=== PATIENT | female | born 1965 | race Caucasian/White ===

== ENCOUNTER → 2016-09-26 | Outpatient (CLI) | payer BC ==
[~2016-09-26] MED LIST: ACET-1256 PO; ATR10 PO; BENA10TA10 PO; CALC0.2510 PO; CETI10TA84 PO; FEXO1TAB49 PO; KPH PO; LEVA45AE INH; LEVAAER2 INH; LOVA20TA4 PO; PANT40TA PO; TPRSR/50 PO
[2016-09-26 14:43] LABS: BASO % 0.8 %; BASO ABS # 0.07 K/uL (0-0.2); COMPLETE YES; EOS % 2.9 %; HEMATOCRIT 38.4 % (37-47); IG% 0.7 %; LYMPH % 35.3 %; LYMPH ABS # 3.09 K/uL (1.2-3.4); MEAN CELL VOLUME 90.6 fL (80-100); MEAN CORPUSCULAR HEMOGLOBIN 30.9 pg (25-34); MEAN CORPUSCULAR HGB CONC 34.1 g/dl (32-36); MEAN PLATELET VOLUME 10.1 fL (7.4-10.4); NEUT % 53.3 %; PLATELET COUNT 341 K/uL (130-400); RED BLOOD COUNT 4.24 M/uL (4.2-5.4); WHITE BLOOD COUNT 8.76 K/uL (4.8-10.8)
[2016-09-26 15:34] LABS: ALKALINE PHOSPHATASE 93 U/L (45-117); ALT/SGPT 20 U/L (12-78); AST/SGOT 12 U/L (15-37); BLOOD UREA NITROGEN 19 mg/dl (7-18); BUN/CREATININE RATIO 11.6 (10-20); CALCIUM 9.4 mg/dl (8.5-10.1); CARBON DIOXIDE 30 mmol/L (21-32); CHLORIDE 106 mmol/L (98-107); GLUCOSE 138 mg/dl (70-99); PHOSPHORUS 2.1 mg/dl (2.5-4.9); POTASSIUM 3.5 mmol/L (3.5-5.1); SODIUM 143 mmol/L (136-145)
[2016-09-26 15:37] LABS: FERRITIN 79.8 ng/ml (8.0-388.0); TOTAL IRON BINDING CAPACITY 371 mcg/dl (250-450)
[2016-09-26 15:48] LABS: URINE APPEARANCE CLEAR (CLEAR); URINE BILIRUBIN NEG (NEG); URINE COLOR YELLOW; URINE EPITHELIAL CELL AUTO 20-30 /lpf (0-5); URINE NITRITE NEG (NEG); UROBILINOGEN NEG (NEG); ZZUR CULT IF INDIC CLEAN CATCH NO
[2016-09-26 15:50] LABS: MANUAL MICROSCOPIC REQUIRED? NO; REVIEW REQ? NO
[2016-09-26 16:06] LABS: URINE TOTAL PROTEIN < 5.0 mg/dl (0-11.9)
== END | disposition home or self-care (01) ==
LOC: C.LAB 13:52
PROVIDERS: ATTEND Internal Medicine Endocrinology, Diabetes & Metabolism
DX: C50.112 Malignant neoplasm of central portion of left female breast (principal); Z13.29 Encounter for screening for other suspected endocrine disorder; M81.0 Age-related osteoporosis without current pathological fracture; E87.8 Other disorders of electrolyte and fluid balance, not elsewhere classified; Z13.21 Encounter for screening for nutritional disorder; N18.1 Chronic kidney disease, stage 1; N20.0 Calculus of kidney; E83.31 Familial hypophosphatemia; E83.50 Unspecified disorder of calcium metabolism

== ENCOUNTER 2016-10-11 16:13 | Emergency (ER) | payer BC ==
[~2016-10-11] VITALS: Ht 152.4 cm; Wt 82.7 kg
[~2016-10-11 16:13] MED LIST changes: -ATR10 PO; -CETI10TA84 PO; -FEXO1TAB49 PO; -LEVA45AE INH; -TPRSR/50 PO
[2016-10-11 16:37] VITALS: TEMP 36.7; Ht 152.4 cm; Wt 82.7 kg
[2016-10-11] MEDS ORDERED: TPRSR/50 PO (17:49)
[2016-10-11] MEDS ORDERED: LEVA45AE INH (17:49)
[2016-10-11 18:12] LABS: HEMATOCRIT 38.2 % (37-47); MEAN CELL VOLUME 89.7 fL (80-100); MEAN CORPUSCULAR HEMOGLOBIN 29.1 pg (25-34); MEAN CORPUSCULAR HGB CONC 32.5 g/dl (32-36); MEAN PLATELET VOLUME 9.7 fL (7.4-10.4); PLATELET COUNT 275 K/uL (130-400); RED BLOOD COUNT 4.26 M/uL (4.2-5.4); WHITE BLOOD COUNT 13.42 K/uL (4.8-10.8)
[2016-10-11 18:21] LABS: INR 0.9 (0.9-1.1); PARTIAL THROMBOPLASTIN RATIO 0.9; PROTHROMBIN TIME (PATIENT) 9.9 SECONDS (9.0-12.0)
[2016-10-11 18:32] LABS: BUN/CREATININE RATIO 18.7 (10-20); CALCIUM 10.4 mg/dl (8.5-10.1); CREATININE 1.6 mg/dl (0.60-1.20); POTASSIUM 3.8 mmol/L (3.5-5.1)
[2016-10-11 18:37] LABS: CKMB/CK RATIO 1.5 (0-3.0)
--- NOTE | 2016-10-11 18:44 | DIAGNOSTIC IMAGING REPORT ---
CHEST ONE VIEW PORTABLE CLINICAL HISTORY: Hypertension COMPARISON STUDY: Chest radiograph November 12, 2012. FINDINGS: Lung volumes are normal. There is no pneumothorax or pleural effusion. There is no consolidation. Cardiac size is normal. Mediastinal contours are normal. There is no evidence of pulmonary edema. IMPRESSION: No acute cardiopulmonary findings. Electronically signed by: Joshua Estrada M.D. 10/11/2016 6:43 PM Dictated Date/Time: 10/11/2016 6:42 PM
[2016-10-11] MEDS ORDERED: METOPROLOL TARTRATE 1 MG/ML VIAL IV STA (19:03)
[2016-10-11] MEDS ORDERED: METOPROLOL SUCC 50MG EXT REL TAB PO STA (19:57)
[2016-10-11] MEDS ORDERED: ACETAMINOPHEN 500 MG TAB PO STA (20:55)
--- NOTE | 2016-10-11 21:03 | EMERGENCY ROOM VISIT NOTE ---
ED Visit Note First contact with patient: 18:04 CHIEF COMPLAINT: High blood pressure HISTORY OF PRESENT ILLNESS: This 50-year-old female patient presents to the emergency department with complaint of high blood pressure for the past 2 months. She presents today primarily for symptoms of nausea with one episode of vomiting, pressure in her head and neck, ringing in her ears, and feeling anxious. All of the symptoms have been ongoing for the past 2 months and are currently resolved. Patient states she has a long history of high blood pressure and has been on multiple different medications. She most recently has been on been on benazepril, which had been controlling her blood pressure well until the past 2 months. Patient states that she has been speaking with her PCPs office who changed her from the benazepril to metoprolol extended release 50 mg 4 days ago. She states she also sees a salon receptionist who told her to take something different, and she has been taking different things each day, and has not been taking any of the medications consistently. Of note, patient reports that she was diagnosed with breast cancer approximately 2 months ago, she did have surgery for a lumpectomy and lymph node resection one month ago. REVIEW OF SYSTEMS: A review of systems was performed with positives and pertinent negatives listed in the history of present illness. All other systems were reviewed and are negative. ALLERGIES: See chart MEDICATIONS: See chart PMH: See chart SOCIAL HISTORY: See chart PHYSICAL EXAM: VITALS: Vitals are noted on the nurse's note and reviewed by myself. Hypertensive and mildly tachycardic. Vital signs otherwise stable. CONSTITUTIONAL: No acute distress. Well hydrated, well appearing and well nourished. Alert and oriented X 4 with normal affect. HEENT: Normocephalic, atraumatic. Pupils equal, round and reactive to light, EOMI. Normal funduscopic exam. TMs normal. Pharynx normal. Moist mucous membranes. NECK: Supple, full active range of motion without discomfort. RESPIRATORY: Clear to auscultation bilaterally with no wheezing, crackles, rhonchi or stridor. Equal expansion bilaterally. CARDIOVASCULAR: Regular rate and rhythm with no murmurs, rubs or gallops. Normal peripheral perfusion. No edema. GASTROINTESTINAL: Soft, nontender, nondistended. Bowel sounds present in all quadrants. MUSCULOSKELETAL: Full range of motion of all joints without discomfort. INTEGUMENTARY: No rash or other significant dermatologic conditions noted. NEUROLOGIC: Cranial nerves II-XII grossly intact. No focal neurologic deficits noted. Normal motor, normal sensation, normal coordination, normal gait. EMERGENCY DEPARTMENT COURSE: I examined the patient. Differential diagnosis includes uncontrolled/worsening essential hypertension, acute GA, congestive heart failure, acute kidney injury, electrolyte abnormality, among others. She is neurologically intact on exam with no focal deficits. She currently has no complaints, remains moderately hypertensive but is symptom-free. Patient is also noted to be quite anxious about her blood pressure. Upon further questioning, patient does admit that she has not been taking her blood pressure medications as prescribed, stating she did not take the metoprolol today that was recently prescribed to her. Orders placed for labs, urine dip, EKG, chest x -ray. Results reviewed, labs are fairly unremarkable, noting mild leukocytosis , but no anemia, no electrolyte abnormalities, renal function at baseline per patient, and negative troponin/CK-MB. Urine dip is negative for proteinuria. EKG reviewed, normal sinus rhythm with a rate of 89 beats per minute, minimal voltage criteria for LVH which may also be a normal variant, otherwise a normal EKG with no ischemic changes. Chest x-ray reviewed and unremarkable. Patient was given a small dose of IV metoprolol with good effect on her heart rate and blood pressure. Patient was then given her prescribed dose of 50 mg metoprolol ER, since she did not take this at all today. Patient's blood pressure remains elevated, but is improved compared to earlier and patient remains symptom-free. Patient seemed quite anxious during her entire ED stay, though this was somewhat improved after she was informed of all her normal results. I do believe stress/anxiety may play some role in patient's change in her blood pressure, given the onset around the same time that she was diagnosed with breast cancer. I spent several minutes at the bedside with the patient and her counseling them on the importance of ongoing management of blood pressure through her PCP or her salon receptionist, they verbalized understanding. Patient was discharged home in stable condition. Medication Reconciliation: I attest that I have personally reviewed the patient' s current medication list. Blood pressure screening: The patient was found to have an elevated blood pressure and was referred to their primary doctor for recheck and further treatment. Patient was discussed with Dr. James, who agrees with my assessment and plan. Problem List Medical Problems: (1) Asthma Status: Chronic (2) Chronic kidney disease, stage 3 (moderate) Status: Chronic (3) Esophageal reflux Status: Chronic Surgical Problems: (1) Tubal ligation status Status: Chronic Current/Historical Medications Scheduled Calcitriol (Rocaltrol Cap), 0.5 MCG PO BID Lovastatin (Mevacor), 40 MG PO QAM Metoprolol Succinate (Metoprolol Succinate ER), 50 MG PO DAILY Potassium Phosphate Monobasic (K-Phos), 1,000 MG PO TID Scheduled PRN Pantoprazole (Protonix), 40 MG PO DAILY PRN for Reflux Miscellaneous Medications Levalbuterol Tartrate (Levalbuterol Tartrate Hfa) Allergies Coded Allergies: Codeine (Unverified Allergy, Intermediate, PALPITATIONS, 10/11/16) Omeprazole (Unverified Allergy, Intermediate, RASH, 10/11/16) Oxycodone (Unverified Allergy, Intermediate, RASH, 10/11/16) Vital Signs Date Time Temp Pulse Resp B/P (MAP) Pulse Ox O2 Delivery O2 Flow Rate FiO2 10/11/16 21:33 101 16 151/99 99 10/11/16 20:51 106 142/92 10/11/16 20:04 103 163/101 10/11/16 19:33 92 21 10/11/16 19:31 178/105 10/11/16 19:28 94 18 10/11/16 19:23 102 28 10/11/16 19:15 88 152/106 10/11/16 19:13 101 18 10/11/16 19:13 101 18 10/11/16 19:01 152/106 10/11/16 19:01 152/106 10/11/16 18:58 100 20 10/11/16 18:58 100 20 10/11/16 18:43 95 20 10/11/16 18:43 95 20 10/11/16 18:31 161/104 10/11/16 18:31 161/104 10/11/16 18:28 99 16 10/11/16 18:28 99 16 10/11/16 18:13 99 16 10/11/16 18:13 99 16 10/11/16 18:00 Room Air 10/11/16 17:58 98 15 10/11/16 17:58 98 15 10/11/16 17:46 150/105 10/11/16 17:46 150/105 10/11/16 17:43 90 19 10/11/16 17:43 97 138/101 10/11/16 17:43 90 19 10/11/16 17:31 138/101 10/11/16 17:31 138/101 10/11/16 17:29 92 10/11/16 17:28 98 15 10/11/16 17:28 98 15 10/11/16 17:22 92 16 142/103 10/11/16 17:20 142/103 10/11/16 17:20 142/103 10/11/16 17:19 Room Air 10/11/16 17:07 156/110 10/11/16 17:07 156/110 10/11/16 16:37 36.7 95 20 143/95 100 Room Air Laboratory Results 10/11/16 17:55 10/11/16 17:55 Test 10/11/16 17:55 10/11/16 18:02 Red Blood Count 4.26 M/uL (4.2-5.4) Mean Corpuscular Volume 89.7 fL (80-100) Mean Corpuscular Hemoglobin 29.1 pg (25-34) Mean Corpuscular Hemoglobin Concent 32.5 g/dl (32-36) RDW Standard Deviation 45.1 fL (36.4-46.3) RDW Coefficient of Variation 13.8 % (11.5-14.5) Mean Platelet Volume 9.7 fL (7.4-10.4) Prothrombin Time 9.9 SECONDS (9.0-12.0) Prothromb Time International Ratio 0.9 (0.9-1.1) Activated Partial Thromboplast Time 23.7 SECONDS (21.0-31.0) Partial Thromboplastin Ratio 0.9 Anion Gap 8.0 mmol/L (3-11) Est Creatinine Clear Calc Drug Dose 40.5 ml/min Estimated GFR () 43.4 Estimated GFR (Non- 37.4 BUN/Creatinine Ratio 18.7 (10-20) Calcium Level 10.4 mg/dl (8.5-10.1) Total Bilirubin 0.3 mg/dl (0.2-1) Aspartate Amino Transf (AST/SGOT) 16 U/L (15-37) Alanine Aminotransferase (ALT/SGPT) 22 U/L (12-78) Alkaline Phosphatase 94 U/L (45-117) Total Creatine Kinase 75 U/L (26-192) Creatine Kinase MB 1.1 ng/ml (0.5-3.6) Creatine Kinase MB Ratio 1.5 (0-3.0) Total Protein 7.5 gm/dl (6.4-8.2) Albumin 3.7 gm/dl (3.4-5.0) Globulin 3.8 gm/dl (2.5-4.0) Albumin/Globulin Ratio 1.0 (0.9-2) Bedside Troponin I < 0.030 ng/ml (0-0.045) Medications Administered Medications (Trade) Dose Ordered Sig/Zehra Route Start Time Stop Time Status Last Admin Dose Admin Metoprolol Tartrate (Lopressor Iv) 2.5 mg NOW STAT IV 10/11/16 19:03 10/11/16 19:04 DC 10/11/16 19:15 2.5 MG Metoprolol Succinate (Toprol Xl Tab) 50 mg NOW STAT PO 10/11/16 19:57 10/11/16 19:59 DC 10/11/16 19:57 50 MG Acetaminophen (Tylenol Tab) 1,000 mg NOW STAT PO 10/11/16 20:55 10/11/16 20:57 DC 10/11/16 21:07 1,000 MG Departure Information Impression Primary Impression: Hypertension Dispostion Home / Self-Care Condition GOOD Referrals Belle Dang M.D. (PCP) Patient Instructions ED Diet Low Salt 2Gm, ED HTN Established, My [facility] Additional Instructions Take your prescribed blood pressure medicine as directed, do not skip doses or taking other medications unless specifically directed by your PCP. Take it easy for the next few days, specifically focusing on ways to relax and reduce stress, as this may increase your blood pressure. Limit sodium in your diet to help reduce blood pressure. Follow-up with your PCP and/or salon receptionist within the next few days to reassess her blood pressure. Please return to the ER for worsening symptoms, including severe chest pain, shortness of breath, severe dizziness or passing out, severe headache, vision changes, persistent vomiting, or any other concerns. Work Instructions Return To Work: 3 days Problem Qualifiers Primary Impression: Hypertension Hypertension type: essential hypertension Qualified Codes: I10 - Essential ( primary) hypertension
[2016-10-11 21:33] VITALS: BP 151/99; PULSE 101; O2SAT 99
[2016-10-30] MEDS ORDERED: BENA10TA10 PO (16:50)
== END 2016-10-11 21:33 | disposition home or self-care (01) ==
LOC: C.EDB 16:14 → C.EDA 21:33
DX: I10 Essential (primary) hypertension (principal); J45.909 Unspecified asthma, uncomplicated; N18.3 Chronic kidney disease, stage 3 (moderate); K21.9 Gastro-esophageal reflux disease without esophagitis; Z79.899 Other long term (current) drug therapy

== ENCOUNTER → 2017-01-10 | Outpatient (CLI) | payer BC ==
[~2017-01-10] MED LIST changes: -ACET-1256 PO; +LEVA45AE INH; -LEVAAER2 INH
--- NOTE | 2017-01-10 17:50 | DIAGNOSTIC IMAGING REPORT ---
TWO VIEW CHEST CLINICAL HISTORY: Chronic cough. FINDINGS: PA and lateral chest radiographs are compared to study dated 10/11/2016. The cardiomediastinal silhouette is unremarkable. The lungs and pleural spaces are clear. There is no pneumothorax. The skeletal structures are osteopenic. The bony thorax appears intact. Mild hyperkyphosis is noted in the thoracic spine. IMPRESSION: No active disease in the chest. Electronically signed by: Scott De Souza M.D. 01/10/2017 5:49 PM Dictated Date/Time: 01/10/2017 5:48 PM
== END | disposition home or self-care (01) ==
LOC: C.RAD 17:09
PROVIDERS: ATTEND Physician Assistant
DX: R05 Cough (principal)

== ENCOUNTER → 2017-02-15 | Outpatient (CLI) | payer BC ==
--- NOTE | 2017-02-15 13:58 | DIAGNOSTIC IMAGING REPORT ---
BONE SCAN WHOLE BODY HISTORY: Breast carcinoma BREAST CA RADIOTRACER: 21.7 mCi Tc-99m MDP STUDY/IMAGES: Planar anterior and posterior whole body imaging was performed 3 hours following the intravenous administration of radiotracer. COMPARISON: None. FINDINGS: . 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 This is confirmed on the patient's prior ultrasound of the kidneys dated 10/11/2012. There are findings of mild degenerative activity of the medial joint compartments of the knees, with less prominent degenerative activity involving the hips and ankles. Study is considered negative for metastatic bone disease. IMPRESSION: No evidence for metastatic bone disease The above report was generated using voice recognition software. It may contain grammatical, syntax or spelling errors. Electronically signed by: Erwin Acharya M.D. 02/15/2017 1:57 PM Dictated Date/Time: 02/15/2017 1:53 PM
== END | disposition home or self-care (01) ==
LOC: C.NUCL 10:08
PROVIDERS: ATTEND Family Medicine
DX: C50.919 Malignant neoplasm of unspecified site of unspecified female breast (principal)

== ENCOUNTER → 2017-03-05 | Outpatient (CLI) | payer BC ==
--- NOTE | 2017-03-05 15:13 | MAMMOGRAPHY REPORT ---
UNILATERAL LEFT DIGITAL DIAGNOSTIC MAMMOGRAM TOMOSYNTHESIS WITH CAD: 03/05/2017 CLINICAL HISTORY: 51-year-old woman with a personal history of left breast cancer diagnosed in July 2016 status post lumpectomy performed 08/11/2016. She underwent an incomplete course of radiation th erapy for approximately 4 weeks in 2016. She now reports left breast erythema and i tchiness. Also reports hypercalcemia which she believes is due to Arimidex. Surgical pathology repo rt from [facility] dated 08/17/2016 yielded multiple foci of invasive carcinoma, greatest dim ension 11 mm. DCIS is present, approximately 2 mm. Margins were uninvolved by invasive carcinoma an d uninvolved by DCIS. TECHNIQUE: Left breast tomosynthesis in addition to standard 2D mammography was performed. Spot magn ification left CC and ML views were also obtained. Current study was also evaluated with a Computer Aided Detection (CAD) system. COMPARISON: Comparison is made to exams dated: 08/11/2016 mammogram, 07/14/2016 mammogram, 06/10/2016 mamm ogram, and 10/18/2009 mammogram. BREAST COMPOSITION: There are scattered areas of fibroglandular density in the left breast. FINDINGS: There is expected architectural distortion and surgical clips in the upper outer middle thr ough posterior left breast, at the site of prior lumpectomy. No obvious mass, unexpected architectur al distortion, asymmetry or suspicious calcifications are seen in the left breast. There is mild dif fuse skin thickening and trabecular edema, likely related to prior treatment. IMPRESSION: ACR-BI-RADS CATEGORY 3: PROBABLY BENIGN 1. Expected posttreatment changes in the left breast, without definite mammographic evidence of huma gnancy. 2. Given that the multifocal disease was best appreciated on MRI, a follow-up breast MRI is recommen ded now to ensure stability after treatment. 3. The patient is also due for bilateral diagnostic mammography in July 2017, for routine screening of the right breast and reassessment of posttreatment changes in the left breast. 4. Clinical follow-up with the patient's oncologist versus radiation oncologist versus surgeon is re commended for the diffuse left breast itchiness and erythema. These results and recommendations were discussed with the patient at the time of the exam. Approximately 10% of breast cancers are not detected with mammography. A negative mammographic report should not delay biopsy if a clinically suggestive mass is present. Asia Sumner M.D. ay/:03/05/2017 12:38:24 Business Analyst Ecommerce: Angel REYES(David)(Manish), [facility] letter sent: Follow Up Recommended 3 BI-RADS Code: ACR-BI-RADS Category 3: Probably Benign
== END | disposition home or self-care (01) ==
LOC: C.MAMM 09:46
PROVIDERS: ATTEND Family Medicine
DX: C50.912 Malignant neoplasm of unspecified site of left female breast (principal); Z98.890 Other specified postprocedural states

== ENCOUNTER → 2017-03-05 | Outpatient (CLI) | payer BC ==
[2017-03-05 13:22] LABS: BLOOD UREA NITROGEN 20 mg/dl (7-18); BUN/CREATININE RATIO 15.5 (10-20); CALCIUM 9.3 mg/dl (8.5-10.1); CARBON DIOXIDE 26 mmol/L (21-32); CHLORIDE 103 mmol/L (98-107); CREATININE 1.32 mg/dl (0.60-1.20); GLUCOSE 93 mg/dl (70-99); POTASSIUM 3.8 mmol/L (3.5-5.1); SODIUM 137 mmol/L (136-145)
[2017-03-05 13:23] LABS: PHOSPHORUS 2.3 mg/dl (2.5-4.9)
== END | disposition home or self-care (01) ==
LOC: C.LAB 10:51
PROVIDERS: ATTEND Internal Medicine Endocrinology, Diabetes & Metabolism
DX: E83.31 Familial hypophosphatemia (principal); N18.3 Chronic kidney disease, stage 3 (moderate)

== ENCOUNTER → 2017-03-05 | Outpatient (CLI) | payer BC ==
[~2017-03-05] MED LIST changes: +OPTIRAY 320 IV PRN
--- NOTE | 2017-03-05 13:31 | DIAGNOSTIC IMAGING REPORT ---
(CHEST) THORAX WITH CT DOSE: 359.19 mGycm HISTORY: Breast carcinoma C50.919 Breast cancer TECHNIQUE: Multiaxial CT images of the chest were performed following the intravenous administration of contrast. A dose lowering technique was utilized adhering to the principles of ALARA. COMPARISON: None. FINDINGS: The lungs are clear. The mediastinal vascular structures are within normal limits. No mediastinal or hilar lymphadenopathy. No pleural effusion or pneumothorax. Limited views of the upper abdomen demonstrate a normal liver and spleen. Distention of the upper left renal collecting system unchanged from the prior study of 06/12/2012 IMPRESSION: No significant abnormality identified within the chest. Postprocedural changes left breast and left axilla. The above report was generated using voice recognition software. It may contain grammatical, syntax or spelling errors. Electronically signed by: Erwin Acharya M.D. 03/05/2017 1:30 PM Dictated Date/Time: 03/05/2017 1:23 PM
== END | disposition home or self-care (01) ==
LOC: C.CTS 12:42
PROVIDERS: ATTEND Internal Medicine Critical Care Medicine
DX: C50.919 Malignant neoplasm of unspecified site of unspecified female breast (principal); Z98.890 Other specified postprocedural states

== ENCOUNTER → 2017-06-08 | Outpatient (CLI) | payer BC, OTHER ==
[~2017-06-08] MED LIST changes: -OPTIRAY 320 IV PRN
--- NOTE | 2017-06-11 15:40 | MAMMOGRAPHY REPORT ---
BREAST MRI OF BOTH BREASTS : 06/08/2017 CLINICAL HISTORY: History of left breast cancer diagnosed July 2016 status post lumpectomy and lymph node sampling at an outside institution. COMPARISON: Comparison is made to exams dated: 03/05/2017 mammogram - [facility], 08/11/2016 mammogram, 07/14/2016 mammogram, and 06/10/2016 mammogram. Outside bilateral breast MRI dated 07/24/2016. Technique: The patient was placed prone in a dedicated breast imaging coil. Precontrast axial T1-paty ghted, axial T2-weighted fat saturation, and axial T1-weighted fat saturation images were obtained. After the administration of 8 mL of Gadavist IV contrast, sequential T1-weighted fat saturation image s were obtained. Subtraction images were obtained of the dynamic contrast enhanced sequences, and 3- D reformations were performed. The Dr. Jerry's Smooth Move software was used for kinetic analysis. Findings: Right breast: There is mild background parenchymal enhancement. A few small foci of enhancement are seen scattered throughout the right breast, which are not significantly changed compared to the prior July 2016 MRI exam and likely represent normal background parenchymal enhancement. There are no bermudez spicious enhancing masses or areas of abnormal non-mass enhancement. Left breast: There is mild background parenchymal enhancement. There are new post surgical changes i n the left upper outer quadrant from prior lumpectomy, including small nonenhancing, fat intensity ma sses at the lumpectomy bed consistent with benign fat necrosis. Mild diffuse left breast skin thicke claudio is also evident, likely related to prior radiation therapy. There is a new irregular enhancing mass seen within the left lower inner quadrant at approximately 8:00 middle depth, measuring 6 x 5 x 5 mm (series [id number] image 87 and series 6 image 39). The mass is predominantly hyperintense on T2 paty ghted images and demonstrates a persistent kinetic pattern. Given the history of prior surgery and r adiation, findings could represent fat necrosis/postsurgical changes, however, malignancy is also a d ifferential consideration. Recommend second look ultrasound and mammograms for further evaluation. T he remainder of the left breast demonstrates no suspicious enhancing or other suspicious findings. There are expected post surgical changes in the left axilla from prior surgical lymph node sampling, with no evidence of axillary adenopathy in bilateral axillae. The chest wall structures are negative . Visualized portions of extramammary soft tissues are grossly unremarkable. IMPRESSION: ACR BI-RADS CATEGORY 0: INCOMPLETE EVALUATION: NEED ADDITIONAL IMAGING EVALUATION 1. Expected post treatment changes in the left breast from prior lumpectomy and radiation therapy. A new irregular 6 mm enhancing mass seen within the left breast at approximately 8:00. While the mas s could potentially represent postsurgical changes/fat necrosis, malignancy is also a consideration. Recommend additional imaging evaluation with left breast diagnostic mammograms and targeted second l ook ultrasound; if a suspicious mass is seen on ultrasound, the ultrasound-guided biopsy could be per formed at that time (45 minute time slot). 2. No MRI evidence of malignancy in the right breast. Danika Mendoza M.D. 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
== END | disposition home or self-care (01) ==
LOC: C.MRI 14:17
PROVIDERS: ATTEND Family Medicine
DX: C50.919 Malignant neoplasm of unspecified site of unspecified female breast (principal); C77.3 Secondary and unspecified malignant neoplasm of axilla and upper limb lymph nodes; N63.20 Unspecified lump in the left breast, unspecified quadrant

== ENCOUNTER → 2017-06-08 | Outpatient (CLI) | payer BC ==
[~2017-06-08] MED LIST changes: +GADAVIST IV PRN
--- NOTE | 2017-06-08 16:24 | DIAGNOSTIC IMAGING REPORT ---
L EXTREMITY NONVASCULAR LIMITED CLINICAL HISTORY: 51 years-old Female presenting with SWELLING UNDER LFT ARM RADIATING TO UPPER ARM. TECHNIQUE: Real-time grayscale ultrasound imaging of the left axilla was performed for a focused evaluation at the site of clinical concern. COMPARISON: CT chest from 03/05/2017. FINDINGS: No lymphadenopathy or fluid collection. The previously visualized fat necrosis in the left axilla in the lymph node dissection bed is not sonographically visible. IMPRESSION: 1. No sonographic evidence of lymphadenopathy. Please see subsequently performed breast MR. 2. Previously noted fat necrosis in the left axilla on prior CT is not sonographically visible. This could potentially account for the patient's symptomatology if it remains present. Again, please see subsequently performed breast MR. Electronically signed by: Sarkis Arriaza M.D. 06/08/2017 4:23 PM Dictated Date/Time: 06/08/2017 4:22 PM
== END | disposition home or self-care (01) ==
LOC: C.ULTR 14:20
PROVIDERS: ATTEND Surgery
DX: R60.0 Localized edema (principal)